=== PATIENT | male | born 2000 ===

== ENCOUNTER 2020-06-12 16:53 | Outpatient (REF) | payer BC, SELFPAY | END 2020-06-12 17:13 | LOC: NCHCN 16:53 | PROVIDERS: PCP Family Medicine; Visit Provider Family Medicine | DX: Z20.828 Contact with and (suspected) exposure to other viral communicable diseases (principal); R50.9 Fever, unspecified; R51.9 Headache, unspecified | CPT/HCPCS: U0003 ==